=== PATIENT | male | born 1980 | race Caucasian/White ===

== ENCOUNTER → 2020-03-19 | Outpatient (CLI) | payer OTHER ==
[~2020-03-19] MED LIST: ISOVUE-370 76% 100ML VIAL As Ordered ONE
--- NOTE | 2020-03-19 14:45 | REPVR ---
PROCEDURE INFORMATION: Exam: CT Neck With Contrast Exam date and time: 03/19/2020 2:28 PM Age: 40 years old Clinical indication: Pain; Other: Mass lt thyroid lobe; Additional info: Large cystic mass lt thyroid lobe TECHNIQUE: Imaging protocol: Computed tomography images of the neck with intravenous contrast. Radiation optimization: All CT scans at this facility use at least one of these dose optimization techniques: automated exposure control; mA and/or kV adjustment per patient size (includes targeted exams where dose is matched to clinical indication); or iterative reconstruction. Contrast material: ISOVUE 370; Contrast volume: 75 ml; Contrast route: INTRAVENOUS (IV); COMPARISON: No relevant prior studies available. FINDINGS: Nasopharynx: Unremarkable. Oropharynx: Unremarkable. No significant tonsillar enlargement. Hypopharynx: Unremarkable. Larynx: Unremarkable. Normal epiglottis. Retropharyngeal space: Unremarkable. Submandibular/Parotid glands: Normal. Glands are normal in size. Thyroid: There is an oblong 5.0 x 2.8 x 2.9 cm cystic appearing structure situated along the posterior aspect of the left mid to lower thyroid lobe with inferior extension. It is not clear whether this arises from or abuts the thyroid gland. Assessment is somewhat limited by beam hardening artifact at that level. Lymph nodes: Unremarkable. No lymphadenopathy. Trachea: Visualized trachea is unremarkable. Lungs: Unremarkable as visualized. Bones/joints: Unremarkable. No acute fracture. IMPRESSION: Cystic structure arising from or abutting the posterior and inferior left thyroid lobe. Assessment is limited by focal beam hardening artifact involving the lower neck and upper chest. Ultrasound is recommended for further evaluation. Electronically signed by: Saige Esposito On 03/19/2020 14:45:53 PM
== END ==
LOC: M RAD 14:00
PROVIDERS: ATTEND Family Medicine
DX: R22.1 Localized swelling, mass and lump, neck (principal)
CPT/HCPCS: 70491; Q9967

== ENCOUNTER → 2021-07-23 | Outpatient (CLI) | payer OTHER | LOC: M SOG 15:54 | PROVIDERS: ATTEND Orthopaedic Surgery Hand Surgery | DX: M25.532 Pain in left wrist (principal) ==

== ENCOUNTER → 2021-08-22 | Outpatient (CLI) | payer OTHER | LOC: M RAD 08-09 07:45 | PROVIDERS: ATTEND Orthopaedic Surgery Hand Surgery | DX: G56.02 Carpal tunnel syndrome, left upper limb (principal); M65.88 Other synovitis and tenosynovitis, other site; M65.832 Other synovitis and tenosynovitis, left forearm; S63.512A Sprain of carpal joint of left wrist, initial encounter; X58.XXXA Exposure to other specified factors, initial encounter ==

== ENCOUNTER → 2023-03-17 | Outpatient (CLI) | payer OTHER | LOC: M RAD 11:13 | PROVIDERS: ATTEND Orthopaedic Surgery | DX: M67.432 Ganglion, left wrist (principal) ==

== ENCOUNTER 2023-08-14 07:15 | Day surgery (SDC) | payer OTHER ==
[~2023-08-14] VITALS: Ht 182.9 cm; Wt 107.9 kg
[2023-08-14] MEDS ORDERED: LR 1,000 ML IV SCH ×2 (08:00→10:15)
[2023-08-14] MEDS ORDERED: fentaNYL 100 MCG/2 ML INJECTION As Ordered ONE (08:06)
[2023-08-14] MEDS ORDERED: propofoL 200 MG/20 ML VIAL As Ordered ONE (08:07)
[2023-08-14] MEDS ORDERED: MIDAZOLAM INJ 2MG/2ML VIAL As Ordered ONE (08:07)
[2023-08-14] MEDS ORDERED: LIDOCAINE 2% 100MG/5ML SDV (FOR ANES.) As Ordered ONE (08:07)
[2023-08-14] MEDS ORDERED: ACETAMINOPHEN 1000MG 100ML IV BAG As Ordered ONE (09:06)
[2023-08-14] MEDS ORDERED: ONDANSETRON 4MG 2ML VIAL As Ordered ONE (09:06)
[2023-08-14] MEDS ORDERED: KETOROLAC 60MG 2ML VIAL As Ordered ONE (09:06)
[2023-08-14] MEDS: ceFAZolin SOD 2 GM in IV 1 EA IV ONE (09:35)
[2023-08-14] MEDS ORDERED: HYDROMORPHONE HCL 0.5 MG/ 0.5 ML SYRINGE IV PRN (10:15)
[2023-08-14] MEDS ORDERED: ONDANSETRON 4MG 2ML VIAL IV PRN (10:15)
[2023-08-14] MEDS ORDERED: oxyCODONE 5MG TAB PO PRN (10:15)
[2023-08-14] MEDS ORDERED: fentaNYL 100 MCG/2 ML INJECTION IV PRN (10:15)
[2023-08-14 11:24] VITALS: BP 118/70; TEMP 98.1; O2SAT 98
== END 2023-08-14 11:50 | disposition home or self-care (01) ==
LOC: M SDC 07:15
PROVIDERS: ATTEND Orthopaedic Surgery Hand Surgery
DX: M65.132 Other infective (teno)synovitis, left wrist (principal); Z87.891 Personal history of nicotine dependence
CPT/HCPCS: 25118; 88307; J0131; J0665; J0690; J1100; J1885; J2250; J2405; J3010

== ENCOUNTER → 2023-08-31 | Outpatient (REF) | payer OTHER ==
[2023-08-31 17:52] LABS: SOURCE, BODY FLUID LT WRIST
[2023-08-31 17:53] LABS: SYNOVIAL FLUID COLOR RED (COLORLESS)
== END ==
LOC: M LAB REF 16:54
PROVIDERS: ATTEND Orthopaedic Surgery Hand Surgery
DX: M65.832 Other synovitis and tenosynovitis, left forearm (principal)

== ENCOUNTER → 2023-11-02 | Outpatient (CLI) | payer OTHER | LOC: M RAD 08:45 | PROVIDERS: ATTEND Physician Assistant | DX: E04.2 Nontoxic multinodular goiter (principal) ==

== ENCOUNTER → 2023-12-19 | Outpatient (CLI) | payer OTHER ==
[~2023-12-19] MED LIST changes: -ISOVUE-370 76% 100ML VIAL As Ordered ONE; +LIDOCAINE 1% MDV 20ML VIAL As Ordered ONE
[2023-12-19 07:20] VITALS: TEMP 98
[2023-12-19 08:05] VITALS: BP 142/84; O2SAT 98
== END ==
LOC: M IRPRO 07:05
PROVIDERS: ATTEND Otolaryngology
DX: E04.1 Nontoxic single thyroid nodule (principal)

== ENCOUNTER → 2024-06-21 | Outpatient (CLI) | payer OTHER | LOC: M RAD 13:51 | PROVIDERS: ATTEND Otolaryngology | DX: E04.1 Nontoxic single thyroid nodule (principal) ==

== ENCOUNTER → 2024-11-07 | Outpatient (CLI) | payer OTHER | LOC: M RAD 14:56 | PROVIDERS: ATTEND Otolaryngology | DX: E04.1 Nontoxic single thyroid nodule (principal) ==